=== PATIENT | male | born 1985 | race Hispanic/Latino ===

== ENCOUNTER 2022-08-12 14:31 | Emergency (ER) | payer SELFPAY ==
--- NOTE | 2022-08-12 15:24 | RAD REPORT ---
EXAM DESCRIPTION: - Finger-Thumb Left - 08/12/2022 3:17 pm CLINICAL HISTORY: left 2nd digit lac at metacarpal COMPARISON: No comparisons FINDINGS/IMPRESSION: No acute fracture. No malalignment. No significant focal degenerative changes. No radiopaque foreign body.
[2022-08-12] MEDS ORDERED: LIDOCAINE 1% W/EPI 1:100,000 50 ML MDV ONE (15:56)
--- NOTE | 2022-08-12 16:15 | ER ---
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 ll1 Bleeding controlled. Coronavirus screen: Client denies travel out of the [place] in the last 14 days. At this time, the client does not indicate any symptoms associated with coronavirus-19. Ebola Screen: Patient denies travel to an Ebola-affected area in the 21 days before illness onset. Complicating Factors: There are no complicating factors for this patient. Initial Sepsis Screen: Does the patient meet any 2 criteria? No. Patient's initial sepsis screen is negative. Does the patient have a suspected source of infection? Yes: Skin breakdown/wound. Risk Assessment: Do you want to hurt yourself or someone else? Patient reports no desire to harm self or others. Onset of symptoms was August 12, 2022. 14:47 Method Of Arrival: Ambulatory ll1 14:47 Acuity: RUBÉN 4 ll1 Historical: - Allergies: 14:46 No Known Allergies; ll1 - PMHx: 14:46 None; ll1 - PSHx: 14:46 None; ll1 - Immunization history:: Adult Immunizations up to date, Last tetanus immunization: unknown. - Social history:: Smoking status: Patient reports the use of cigarette tobacco products, smokes one-half pack cigarettes per day. Vital Signs: 14:47 BP 151 / 99; Pulse 93; Resp 16; Temp 99.3; Pulse Ox 100% ; Weight 99.79 kg; Height 5 ll1 ft. 8 in. ; Pain 2/10; 14:47 Body Mass Index 33.45 (99.79 kg, 172.72 cm) ll1 14:47 Pain Scale: Adult ll1 ED Course: 14:34 Patient arrived in ED. mr 14:36 Hossein Mann MD is Attending Physician. bs3 14:48 Triage completed. ll1 14:48 Arm band placed on. ll1 15:19 XRAY Finger-Thumb Left In Process Unspecified. EDMS 16:08 Duke Abreu, RN is Primary Nurse. jl7 16:22 Assist provider with laceration repair on left index finger that was 2.5 cm. or less jl7 using sutures. Set up tray. Performed by Hossein Mann MD Dressed with band aid, Patient tolerated well. 16:30 Patient has correct armband on for positive identification. jl7 16:30 Patient did not have IV access during this emergency room visit. jl7 Administered Medications: 15:50 Drug: Tetanus-Diphtheria Toxoid IM Adult 0.5 ml {Toby Maker: [employer]. Exp: jl7 08/20/2023. Lot #: [id number]. } Route: IM; Site: right deltoid; 16:31 Follow up: Response: (VIS) Vaccine information sheet provided today. Questions and/or jl7 concerns addressed. VIS edition date: Oct 15, 2020.; No adverse reaction 15:55 Drug: Lidocaine-Epinephrine Infiltration -1%: (1:100,000) 5 ml {Note: administered by cielo ERD.} Volume: 20 ml; Route: Infiltration; 16:31 Follow up: Response: No adverse reaction jl7 Medication: 16:30 Vaccine Information Statement (VIS) provided today. Questions and/or concerns jl7 addressed. VIS edition date: October 15, 2022. Outcome: 16:14 Discharge ordered by . bs3 16:30 Discharged to home ambulatory. jl7 16:30 Condition: stable 16:30 Discharge instructions given to patient, Instructed on discharge instructions, follow up and referral plans. Demonstrated understanding of instructions, follow-up care. 16:32 Patient left the ED. jl7 Signatures: Dispatcher [employer] EDTN Margo Cooper mr Duke Abreu, RN RN jl7 Severiano Feng RN RN ll1 Hossein Mann MD MD bs3 Corrections: (The following items were deleted from the chart) 16:31 16:23 Lidocaine-Epinephrine Infiltration -1%: (1:100,000) 5 ml 20 ml Infiltration; jl7 administered by ERD cielo
--- NOTE | 2022-08-12 16:15 | EDPHYS ---
Physician Documentation [facility] Name: Ronnie Jackson Age: 37 yrs Sex: Male : 1985 Arrival Date: 08/12/2022 Time: 14:31 Bed 11 Private MD: ED Physician Hossein Mann HPI: 08/12 14:56 This 37 yrs old Male presents to ER via Ambulatory with complaints of bs3 Laceration To Hand. 14:56 Patient presents with a laceration to at his left second digit no associated numbness bs3 tingling or weakness he was sharpening a knife when it slipped and he cut himself denies any other injuries unknown last tetanus. Historical: - Allergies: 14:46 No Known Allergies; ll1 - PMHx: 14:46 None; ll1 - PSHx: 14:46 None; ll1 - Immunization history:: Adult Immunizations up to date, Last tetanus immunization: unknown. - Social history:: Smoking status: Patient reports the use of cigarette tobacco products, smokes one-half pack cigarettes per day. ROS: 14:56 Constitutional: Negative for fever, chills bs3 14:56 All other systems are negative. Exam: 14:56 Constitutional: This is a well developed, well nourished patient who is awake, alert, bs3 and in no acute distress. Head/Face: Normocephalic, atraumatic. Eyes: Pupils equal round and reactive to light, extra-ocular motions intact. Lids and lashes normal. ENT: mmm, no posterior phyarngeal erythema Neck: Trachea midline, no thyromegaly, no neck stiffness MS/ Extremity: Just distal to his left metacarpophalangeal joint on the dorsum of his second digit is a laceration he has intact and set sensation distally and extension Neuro: Awake and alert, GCS 15, oriented to person, place, time, and situation. Cranial nerves II-XII grossly intact. Motor strength 5/5 in all extremities. Sensory grossly intact. Psych: Awake, alert, with orientation to person, place and time. Behavior, mood, and affect are within normal limits. Vital Signs: 14:47 BP 151 / 99; Pulse 93; Resp 16; Temp 99.3; Pulse Ox 100% ; Weight 99.79 kg; Height 5 ll1 ft. 8 in. ; Pain 2/10; 14:47 Body Mass Index 33.45 (99.79 kg, 172.72 cm) ll1 14:47 Pain Scale: Adult ll1 Laceration: 14:56 Wound Repair of 2cm ( 0.8in ) subcutaneous laceration to left hand. Distal bs3 neuro/vascular/tendon intact. Anesthesia: Local anesthetic administered with 4 mls of 1% lidocaine w/ Epi. Wound prep: Extensive cleansing with hibiclenz by me, Wound irrigation with saline by me, Copious irrigation. Skin closed with 3 4-0 Prolene using simple sutures and sterile technique. Skin closed with 1 5-0 Prolene using simple sutures and sterile technique. Dressed with bandaid. Patient tolerated well. MDM: 14:36 Patient medically screened. bs3 14:56 Data reviewed: vital signs, nurses notes. ED course: Patient with laceration to his bs3 hand will rule out foreign body/bone involvement will clean and close laceration advised return for suture removal in 10 to 12 days. 14:56 ED course: Advised return precautions for any signs of infection cleaned aggressively bs3 at bedside no joint involvement no extensor tendon laceration laceration repaired without complication placed in finger splint advised to remove in 48 hours. 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 Exp: jl7 08/20/2023. Lot #: [id number]. } Route: IM; Site: right deltoid; 16:31 Follow up: Response: (VIS) Vaccine information sheet provided today. Questions and/or jlBrittney concerns addressed. VIS edition date: Oct 15, 2020.; No adverse reaction 15:55 Drug: Lidocaine-Epinephrine Infiltration -1%: (1:100,000) 5 ml {Note: administered by cielo ERD.} Volume: 20 ml; Route: Infiltration; 16:31 Follow up: Response: No adverse reaction jlBrittney Disposition Summary: 08/12/22 16:14 Discharge Ordered Location: Home bs3 Problem: new bs3 Symptoms: have improved bs3 Condition: Stable bs3 Diagnosis - Laceration without foreign body of unspecified finger without damage to nail bs3 Followup: bs3 - With: Emergency Department - When: 10 - 14 days - Reason: Recheck today's complaints Discharge Instructions: - Discharge Summary Sheet bs3 - Laceration Care, Adult, [id number] bs3 Forms: - Medication Reconciliation Form bs3 - Thank You Letter bs3 - Antibiotic Education bs3 - Prescription Opioid Use bs3 Signatures: Dispatcher [employer] Duke Pal RN RN jl7 Severiano Feng RN RN ll1 Hossein Mann MD MD bs3 Corrections: (The following items were deleted from the chart) 16:13 14:56 Wound Repair of 2cm ( 0.8in ) subcutaneous laceration to left hand. Distal bs3 neuro/vascular/tendon intact. Anesthesia: Local anesthetic administered with 4 mls of 1% lidocaine w/ Epi. Wound prep: Extensive cleansing with hibiclenz by me, Wound irrigation with saline by me, Copious irrigation. Skin closed with 3 4-0 Prolene using simple sutures and sterile technique. Dressed with bandaid. Patient tolerated well. bs3
[2022-08-12] MEDS ORDERED: TETANUS & DIPHTHERIA TOX,ADULT 0.5 ML VIAL ONE (16:32)
[2022-08-12 16:37] VITALS: BP 151/99; TEMP 99.3; O2SAT 100
== END 2022-08-12 16:32 | disposition home or self-care (01) ==
LOC: ER 14:31
PROC: 0HQGXZZ Repair Left Hand Skin, External Approach (ICD-10-PCS; principal; 2022-08-12)
DX: S61.412A Laceration without foreign body of left hand, initial encounter (principal)
CPT/HCPCS: 90471; 90714; 99284